=== PATIENT | female | born 1970 | race Caucasian/White ===

== ENCOUNTER 2019-09-12 17:32 | Emergency (ER) | payer BC, MEDICAID ==
[~2019-09-12] VITALS: Ht 154.9 cm; Wt 90.7 kg
[~2019-09-12 17:32] MED LIST: CLON2TAB11 PO; LORA1TAB PO; METO25TA6 PO; PALI6TAB PO; QUET100T PO; QUET200T PO; SERT100T PO
--- NOTE | 2019-09-12 18:01 | NUR ---
Patient was instructed to give clean catch urine & to change to a hospital gown.
[2019-09-12 18:03] LABS: BASOPHILS % (AUTO) 0.2 % (0.0-2.0); EOSINOPHILS # (AUTO) 0.4 K/uL (0.0-0.7); EOSINOPHILS % (AUTO) 3.1 % (0.0-7.0); HEMATOCRIT 36.4 % (31.2-41.9); HEMOGLOBIN 11.8 g/dL (10.9-14.3); LYMPHOCYTES % (AUTO) 15.5 % (20.5-51.5); MEAN CORPUSCULAR HEMOGLOBIN 28.3 uug (24.7-32.8); MEAN CORPUSCULAR HGB CONC 32 g/dL (32.3-35.6); MEAN CORPUSCULAR VOLUME 87.4 fL (75.5-95.3); MONOCYTES # (AUTO) 0.8 K/uL (2.0-10.0); MONOCYTES % (AUTO) 6.5 % (0.0-11.0); NEUTROPHILS # (AUTO) 9.6 K/uL (1.8-8.9); NEUTROPHILS % (AUTO) 74.7 % (38.5-71.5); PLATELET COUNT (AUTO) 244 K/uL (179-408); RED BLOOD CELL COUNT(AUTO) 4.17 MIL/uL (3.63-4.92); WHITE BLOOD COUNT (AUTO) 12.8 K/uL (3.8-11.8)
[2019-09-12 18:10] LABS: CREATININE 0.9 mg/dL (0.6-1.3); POTASSIUM 3.5 mmol/L (3.5-5.1)
--- NOTE | 2019-09-12 18:11 | NUR ---
Patient went to the bathroom and voided but patient forgot to collect the urine specimen, MD notified.
[2019-09-12 18:15] LABS: BILIRUBIN,DIRECT 0.1 mg/dL (0.0-0.2); BILIRUBIN,TOTAL 0.4 mg/dL (0.2-1.0); TOTAL PROTEIN, SERUM 7.4 g/dL (6.4-8.2)
--- NOTE | 2019-09-12 18:30 | NUR ---
Extra po water was given, still for urine specimen, NAD. Private caregiver is at bedside.
[2019-09-12] MEDS ORDERED: QUET300T2 PO ×2 (18:32)
[2019-09-12] MEDS ORDERED: TRAZ-214 PO (18:32)
[2019-09-12] MEDS ORDERED: LORA-259 PO (18:32)
--- NOTE | 2019-09-12 18:46 | NUR ---
Patient is in the bathroom again to void & for urine specimen.
[2019-09-12] MEDS ORDERED: HYDROMORPHONE 1 MG/1 ML DISP.SYRIN ONE (18:55)
[2019-09-12 18:56] LABS: *BILIRUBIN,URIN NEGATIVE (NEGATIVE); *BLOOD, URINE NEGATIVE (NEGATIVE); *CLARITY,URINE SLIGHTLY CLOUDY (CLEAR); *KETONES,URINE NEGATIVE (NEGATIVE); *UROBILINOGEN,URINE 0.2 E.U./dl (NORMAL); LEUKOCYTE ESTERASE ,URINE 1+ (NEGATIVE); NITRITE, URINE NEGATIVE (NEGATIVE); PH,URINE 6.5 (5.0-8.0); UGLUCOSE NEGATIVE (NEGATIVE)
[2019-09-12] MEDS: HYDROMORPHONE 1 MG/1 ML DISP.SYRIN IV ONE (18:58)
[2019-09-12 19:01] LABS: *COLOR,URINE YELLOW (YELLOW)
[2019-09-12 19:02] LABS: BACTERIA,URINE MANY /HPF (NONE SEEN)
[2019-09-12 19:03] LABS: MUCUS,URINE FEW /LPF (0-FEW); SQUAMOUS EPITHELIAL CELL,UR MODERATE /HPF (NONE SEEN)
[2019-09-12] MEDS ORDERED: LIDOCAINE HCL 1% 20 ML VIAL ONE (19:40)
[2019-09-12] MEDS ORDERED: CEFTRIAXONE 1 G VIAL ONE (19:40)
[2019-09-12] MEDS ORDERED: NITROFURANTOIN/NITROFURAN MAC 100 MG CAPSULE ONE (19:40)
[2019-09-12] MEDS: CEFTRIAXONE 1 G VIAL IM ONE (19:47)
[2019-09-12] MEDS: NITROFURANTOIN/NITROFURAN MAC 100 MG CAPSULE PO ONE (19:47)
--- NOTE | 2019-09-12 19:58 | NUR ---
Patient sleeping on gurny with no distress noted. Caregiver at bedside.
--- NOTE | 2019-09-12 20:42 | NUR ---
Patient discharged to home in stable conditon with caregiver. Written and verbal after care instructions given. Patient verbalizes understanding of instructions.
[2019-09-12 20:43] VITALS: BP 102/68
== END 2019-09-12 20:43 | disposition home or self-care (01) ==
LOC: ER 17:35
DX: M54.5 Low back pain (principal); R10.9 Unspecified abdominal pain; F20.9 Schizophrenia, unspecified; Z79.899 Other long term (current) drug therapy
CPT/HCPCS: 36415; 74176; 80048; 80076; 81000; 81001; 83690; 84702; 85025; 87077; 87086; 87186; 96372 ×2; 99284; J0696; J1170; J3490; A4663